=== PATIENT | female | born 2000 | race Caucasian/White ===

== ENCOUNTER 2024-02-24 10:08 | Outpatient (CLI) | payer OTHER, SELFPAY | END 2024-02-24 10:09 | disposition home or self-care (01) | LOC: NFLDREF 02-28 22:37 | PROVIDERS: PCP Family Medicine; Referring Provider Family Medicine; Visit Provider Physician Assistant | DX: Z01.419 Encounter for gynecological examination (general) (routine) without abnormal findings (principal); N92.6 Irregular menstruation, unspecified; Z13.6 Encounter for screening for cardiovascular disorders; Z13.1 Encounter for screening for diabetes mellitus | CPT/HCPCS: 80061; 82947; 84146; 84443 ==

== ENCOUNTER 2024-03-07 14:42 | Outpatient (CLI) | payer OTHER, SELFPAY ==
--- NOTE | 2024-03-07 15:00 | CRLHL7_ITS ---
For Patients: As a result of the Century Cures Act, medical imaging exams and procedure reports are released immediately into your electronic medical record. You may view this report before your referring provider. If you have questions, please contact your health care provider. INDICATION: Irregular menstruation, unspecified COMPARISON: none TECHNIQUE: 2D bello scale and color Doppler images were acquired of the pelvis using a transabdominal and transvaginal approach. FINDINGS: Sonographic images demonstrate a normal size and smooth outer contour of the uterus. Uterus measures 6.8 cm in length by 3.9 cm in AP diameter by 4.0 cm in transverse dimension. The myometrium has a normal uniform echotexture. The endometrial lining appears heterogeneously thickened and measures 16 mm in composite thickness. The right ovary measures 4.0 x 2.6 x 3.0 cm in size and the left ovary measures 3.4 x 1.9 x 2.6 cm. The ovaries demonstrate normal arterial and venous blood flow on color Doppler analysis. Trace physiologic free fluid noted. IMPRESSION: Heterogeneously thickened endometrium measuring 1.6 cm. No endometrial fluid or uterine fibroid. Dictated by Ken Oconnell MD @ 03/09/2024 9:34:56 AM (Electronically Signed)
== END 2024-03-07 14:43 | disposition home or self-care (01) ==
LOC: US 14:42
PROVIDERS: PCP Family Medicine; Visit Provider Physician Assistant
DX: N92.6 Irregular menstruation, unspecified (principal); R93.89 Abnormal findings on diagnostic imaging of other specified body structures
CPT/HCPCS: 76830; 76856